=== PATIENT | male | born 1950 | race Caucasian/White ===

== ENCOUNTER 2019-05-22 17:04 | Emergency (ER) | payer OTHER, MEDICARE ==
--- OUTSIDE RECORDS SUMMARY | 2019-05-22 17:07 | XMS REPORT ---
:1950 Author Organization eClinicalWorks Care Team Providers Name Role Phone Tammie Malcolm Provider Role Unavailable Allergies No Known Allergies Problems Problem Type Condition Code Onset Dates Condition Status Problem Chronic kidney disease (CKD) stage N18.2 Active G2/A1, mildly decreased glomerular filtration rate (GFR) between 60-89 mL/min/1.73 square meter and albuminuria creatinine ratio less than 30 mg/g Problem Hypertriglyceridemia E78.1 Active Problem History of prostate cancer Z85.46 Active Problem Hyperglycemia R73.9 Active Problem Hypertension, unspecified type I10 Active Problem Chronic kidney disease (CKD) stage N18.3 Active G3a/A1, moderately decreased glomerular filtration rate (GFR) between 45-59 mL/min/1.73 square meter and albuminuria creatinine ratio less than 30 mg/g Problem Depression with anxiety F41.8 Active Problem Atrial fibrillation, unspecified I48.91 Active type Medications Medication Code System Code Instructions Start End Date Status Dosage Date Zoloft [facility] 28661388100 50 MG Orally Once Active TAKE 1 a day TABLET BY MOUTH ONCE A DAY Results No Known Results Summary Purpose eClinicalWorks Submission
--- OUTSIDE RECORDS SUMMARY | 2019-05-22 17:07 | XMS REPORT ---
:1950 Author Organization eClinicalWorks Care Team Providers Name Role Phone YoloAbdirahmana Provider Role Unavailable Allergies, Adverse Reactions, Alerts Substance Reaction Event Type N.K.D.A. Info Not Available Non Drug Allergy Problems Problem Type Condition Code Onset Dates Condition Status Assessment Dysuria R30.0 Active Problem Chronic kidney disease (CKD) stage N18.2 Active G2/A1, mildly decreased glomerular filtration rate (GFR) between 60-89 mL/min/1.73 square meter and albuminuria creatinine ratio less than 30 mg/g Assessment History of prostate cancer Z85.46 Active Assessment Depression with anxiety F41.8 Active Assessment Glucosuria R81 Active Problem Hypertriglyceridemia E78.1 Active Problem History of [...] unspecified I48.91 Active type Medications Medication Code Code Instructions Start End Status Dosage System Date Date Diltiazem HCl [facility] 22172392605 240 MG Orally Active 1 capsule ER Once a day on an empty stomach in the morning Icosapent [facility] [address]-20 1 GM Orally Active 2 capsules Ethyl Twice a day with meals Zoloft [facility] 22837345019 50 MG Active TAKE 1 TABLET BY MOUTH ONCE A DAY Results No Known Results Summary Purpose eClinicalWorks Submission
--- OUTSIDE RECORDS SUMMARY | 2019-05-22 17:07 | XMS REPORT ---
:1950 Author Organization eClinicalWorks Care Team Providers Name Role Phone Dung Gomez Provider Role Unavailable Allergies, Adverse Reactions, Alerts Substance Reaction Event Type N.K.D.A. Info Not Available Non Drug Allergy Problems Problem Type Condition Code Onset Dates Condition Status Assessment Hypertension, unspecified type I10 Active Problem Chronic kidney disease (CKD) stage N18.2 Active G2/A1, mildly decreased glomerular filtration rate (GFR) between 60-89 mL/min/1.73 square meter and albuminuria creatinine ratio less than 30 mg/g Assessment Hyperglycemia R73.9 Active Assessment Hypertriglyceridemia E78.1 Active Assessment Atrial fibrillation, unspecified I48.91 Active type Assessment Chronic kidney disease (CKD) stage N18.2 Active [...] Start End Status Dosage System Date Date Zoloft [facility] [id number] 50 MG Active TAKE 1 TABLET BY MOUTH ONCE A DAY Diltiazem HCl [facility] [id number] 240 MG Orally Active 1 capsule ER Once a day on an empty stomach in the morning Icosapent [facility] [address]-41 1 GM Orally Active 2 capsules Ethyl Twice a day with meals Results No Known Results Summary Purpose eClinicalWorks Submission
[2019-05-22] MEDS ORDERED: FENTANYL CITR 100 MCG/2 ML ONE ×2 (17:19→19:34)
[2019-05-22] MEDS ORDERED: NA CHLORIDE 0.9% 500 ML ONE (17:19)
[2019-05-22 17:37] LABS: Absolute Lymphocytes (CBC) 1.5 K/uL (0.7-4.9); Basophils % 0.5 % (0-1.3); Hematocrit 52.2 % (39.6-49.0); Lymphocytes % 10.5 % (15.3-44.8); MPV 9.5 fL (7.6-11.3); RBC Red Blood Cell Count 5.34 M/uL (4.33-5.43)
[2019-05-22 17:49] LABS: Potassium 4.3 mmol/L (3.5-5.1)
--- NOTE | 2019-05-22 17:51 | RAD REPORT ---
EXAM DESCRIPTION: CT - Head C Spine Cap Greg Nolasco - 05/22/2019 5:32 pm CLINICAL HISTORY: Trauma, head and neck injury. Chest, abdomen and pelvis pain. SMASH INJURY COMPARISON: No comparisons TECHNIQUE: CT head without contrast. CT cervical spine without contrast with coronal and sagittal reformatted images. CT chest, abdomen and pelvis with IV contrast (approximately 100 mL nonionic IV contrast) with velásquez l and sagittal reformatted images of the spine. All CT scans are performed using dose optimization technique as appropriate and may include automated exposure control or mA/KV adjustment according to patient size. FINDINGS: CT HEAD WITHOUT CONTRAST: No intracranial hemorrhage, hydrocephalus or extra-axial fluid collection. No areas of brain edema o r midline shift. The paranasal sinuses and mastoids are clear. The calvarium is intact. CT CERVICAL SPINE WITHOUT CONTRAST: No fracture or subluxation. Lower cervical degenerative changes present, most notable at C5-6. The pr evertebral soft tissues are normal in thickness. CT CHEST, ABDOMEN, PELVIS WITH CONTRAST: The lungs are clear.No pneumothorax or pericardial/pleural fluid. No evidence of intra-abdominal visceral injury, free fluid or free air. Punctate right renal calculu s is present. Left proximal femur hardware is present. A burst fracture is present involving the predominately inferior aspect of L3 vertebral body. Mild re tropulsion is seen in the canal with canal narrowing to 10 mm. There is no extension into the pedicle s or posterior elements although chronic bilateral pars defects are suspected as well at this level. IMPRESSION: Mild burst fracture involving inferior aspect of L3 with mild bony fragment retropulsion as detailed.
--- NOTE | 2019-05-22 18:28 | ER ---
Nurse's Notes [facility] Name: Abdi Whitney II Age: 69 yrs Sex: Male : 1950 Arrival Date: 05/22/2019 Time: 17:09 Bed 8 Private MD: Diagnosis: Fall on and from ladder;Burst fracture of L3 Presentation: 05/22 17:10 Presenting complaint: Patient states: he was on top of a 10 ft ladder and fell off of it and landed on both feet. Denies LOC, c/o pelvis pain. Care prior to arrival: None. Mechanism of Injury: Fall from ladder. 17:10 Acuity: CHIN 3 sv 17:10 Acuity: CHIN 2 sv 17:10 Method Of Arrival: Wheelchair sv 17:13 Trauma event details: Injury occurred in the [facility], Injury occurred: at home. Injury occurred: May 22, 2019 Injury occurred at: 16:00. 17:15 Transition of care: patient was not received from another setting of care. Onset of jl7 symptoms was May 22, 2019. Risk Assessment: Do you want to hurt yourself or someone else? Patient reports no desire to harm self or others. Initial Sepsis Screen: Does the patient meet any 2 criteria? No. Patient's initial sepsis screen is negative. Does the patient have a suspected source of infection? No. Patient's initial sepsis screen is negative. Triage Assessment: 17:15 General: Appears in no apparent distress. uncomfortable, Behavior is calm, cooperative, jl7 appropriate for age. Pain: Complains of pain in sacrum and low back area Pain currently is 8 out of 10 on a pain scale. Pain began 30 min ago. Is continuous. EENT: No signs and/or symptoms were reported regarding the EENT system. Neuro: Level of Consciousness is awake, alert, obeys commands, Oriented to person, place, time, situation, Moves all extremities. Full function Gait is steady. Cardiovascular: Patient's skin is warm and dry. Respiratory: Airway is patent Respiratory effort is even, unlabored, Respiratory pattern is regular, symmetrical. Derm: Skin is pink, warm \T\ dry. Trauma Activation: Alert Physician: ED Physician; Name: Rosy; Notified At: 17:06; Arrived At: 17:06 Physician: General Surgeon; Name: ; Notified At: 17:06; Arrived At: Physician: Radiology; Name: parul; Notified At: 17:06; Arrived At: 17:07 Physician: Respiratory; Name: ; Notified At: 17:06; Arrived At: Physician: Lab; Name: ; Notified At: 17:06; Arrived At: Historical: - Allergies: 17:13 No Known Allergies; sv - Home Meds: 17:13 Zoloft 50 mg Oral tab 1 tab once daily [Active]; diltiazem HCl 240 mg Oral cpER 1 cap sv once daily [Active]; Vascepa 1 gram oral cap 2 caps 2 times per day [Active]; - PMHx: 19:13 Hypertension; Depression; Anxiety; jl7 - PSHx: 17:13 left knee replacement; left hip; sv - Immunization history:: Adult Immunizations unknown. - Social history:: Smoking status: Patient denies any tobacco usage or history of. - Immunization history: Last tetanus immunization: < 5 years ago. - Ebola Screening: : No symptoms or risks identified at this time. Screenin:06 Abuse screen: Denies threats or abuse. Denies injuries from another. Tuberculosis jl7 screening: No symptoms or risk factors identified. 18:00 Nutritional screening: No deficits noted. Fall Risk IV access (20 points). Total Olmedo jl7 Fall Scale indicates No Risk (0-24 pts). Primary Survey: 17:06 NO uncontrolled hemorrhage observed. A: The patient is alert. Airway: patent. jl7 Breathing/Chest: Respiratory pattern: regular, Respiratory effort: spontaneous, unlabored, Breath sounds: clear, bilaterally. Chest inspection: symmetrical rise and fall of the chest. Circulation: Heart tones present. Skin color: pink, Skin temperature: warm. Disability Alert. Exposure/Environment: There is no evidence of uncontrolled external bleeding. A warming method has been applied: A warm blanket has been provided to the patient. 17:20 Reassessment Breathing/Chest Respiratory pattern Regular Respiratory effort Spontaneous jl7 Unlabored Breath sounds Clear Chest inspection Symmetrical Disability Alert. Assessment: 17:15 General: See triage assessment. jl7 18:15 Reassessment: Patient appears in no apparent distress at this time. Patient and/or jl7 family updated on plan of care and expected duration. Pain level reassessed. Patient is alert, oriented x 3, equal unlabored respirations, skin warm/dry/pink. Patient states symptoms have improved. 19:37 General: Appears uncomfortable, Behavior is calm, cooperative, appropriate for age. ea Pain: Complains of pain in sacrum and low back area and lumbar area. Neuro: Level of Consciousness is awake, alert, obeys commands, Oriented to person, place, time, situation. Cardiovascular: Patient's skin is warm and dry. Respiratory: Airway is patent Respiratory effort is even, unlabored, Respiratory pattern is regular, symmetrical. Derm: Skin is pink, warm \T\ dry. 19:56 Reassessment: Patient and/or family updated on plan of care and expected duration. Pain ea level reassessed. Patient is alert, oriented x 3, equal unlabored respirations, skin warm/dry/pink. LJ EMS at facility for transfer, pt left ED via stretcher per EMS, pt tolerating well. Vital Signs: 17:13 Temp 98; Weight 103.42 kg; Height 6 ft. 0 in. (182.88 cm); Pain 10/10; sv 18:00 BP 143 / 77; Pulse 66; Resp 16 S; Pulse Ox 99% on R/A; jl7 18:30 BP 149 / 88; Pulse 66; Resp 16 S; Pulse Ox 97% on R/A; jl7 19:45 BP 161 / 95; Pulse 77; Resp 18; Pulse Ox 94% ; ea 17:13 Body Mass Index 30.92 (103.42 kg, 182.88 cm) sv Dariel Coma Score: 17:06 Eye Response: spontaneous(4). Verbal Response: oriented(5). Motor Response: obeys jl7 commands(6). Total: 15. 18:00 Eye Response: spontaneous(4). Verbal Response: oriented(5). Motor Response: obeys jl7 commands(6). Total: 15. 19:45 Eye Response: spontaneous(4). Verbal Response: oriented(5). Motor Response: obeys ea commands(6). Total: 15. Trauma Score (Adult): 17:06 Eye Response: spontaneous(1); Verbal Response: oriented(1); Motor Response: obeys jl7 commands(2); Systolic BP: > 89 mm Hg(4); Respiratory Rate: 10 to 29 per min(4); Mobridge Score: 15; Trauma Score: 12 18:30 Eye Response: spontaneous(1); Verbal Response: oriented(1); Motor Response: obeys jl7 commands(2); Systolic BP: > 89 mm Hg(4); Respiratory Rate: 10 to 29 per min(4); Dariel Score: 15; Trauma Score: 12 ED Course: 17:06 Patient maintains SpO2 saturation greater than 95% on room air. Thermoregulation: warm jl7 blanket given to patient. 17:06 Patient has correct armband on for positive identification. Placed in gown. Bed in low jl7 position. Call light in reach. Side rails up X2. 17:09 Patient arrived in ED. mr 17:11 Teodora Bose, DAVID is PHCP. snw 17:11 Vipul Gallegos MD is Attending Physician. snw 17:12 Triage completed. sv 17:15 eRno Porter, OTONIEL is Primary Nurse. jl7 17:15 Arm band placed on right wrist. jl7 17:26 Inserted saline lock: 18 gauge in left antecubital area, using aseptic technique. em1 17:27 Initial lab(s) drawn, by me, sent to lab. em1 17:33 CT Traumagram (Head C Spine CAP W Con) In Process Unspecified. EDMS 18:00 No provider procedures requiring assistance completed. jl7 18:00 Inserted saline lock: 18 gauge in right antecubital area, using aseptic technique. jl7 Blood collected. 18:23 Foot Left 2 View XRAY In Process Unspecified. EDMS 18:24 Foot Right 2 View XRAY In Process Unspecified. EDMS 19:13 Patient transferred, IV remains in place. intact, No redness/swelling at site. jl7 Administered Medications: 17:20 Drug: fentaNYL (PF) 50 mcg Route: IVP; Site: right antecubital; jl7 17:30 Follow up: Response: No adverse reaction; Pain is decreased jl7 18:00 Drug: NS 0.9% 500 ml Route: IV; Rate: bolus; Site: left antecubital; jl7 18:30 Follow up: Response: No adverse reaction; IV Status: Completed infusion; IV Intake: jl7 500ml 19:37 Drug: fentaNYL (PF) 25 mcg Route: IVP; Site: right antecubital; ea 19:57 Follow up: Response: No adverse reaction; RASS: Alert and Calm (0) ea 19:37 Drug: Valium 5 mg Route: IVP; Site: right antecubital; ea 19:58 Follow up: Response: No adverse reaction; Pain is decreased ea Intake: 18:30 IV: 500ml; Total: 500ml. jl7 19:57 PO: 0ml; IV: 500ml (IV Fluid); Total: 1000ml. ea Outcome: 18:28 ER care complete, transfer ordered by . snw 19:56 Transferred by ground EMS to other acute care facility: [facility]. Transfer form ea completed. X-rays sent w/ patient. 19:56 Condition: stable 19:56 Instructed on the need for transfer. 19:57 Patient's length of stay was not longer than 2 hours. ea 20:03 Patient left the ED. ea Signatures: Dispatcher [employer] EDMS Heike Gomes, RN RN Teodora Barr, LABORER HIDE [employer]SE-C [employer]ER [employer]-Csnw Deyanira Baez, Sameer em1 Reno Porter RN RN jl7 Oliva Carlton RN OTONIEL rosas
--- NOTE | 2019-05-22 18:28 | EDPHYS ---
Physician Documentation [facility] Name: Abdi Whitney II Age: 69 yrs Sex: Male : 1950 Arrival Date: 05/22/2019 Time: 17:09 Bed 8 Private MD: ED Physician Vipul Gallegos HPI: 05/22 18:17 This 69 yrs old Male presents to ER via Wheelchair with complaints of Fall snw Injury. 18:17 Details of fall: The patient fell from a height, from a ladder, approximately 10 feet. snw Onset: The symptoms/episode began/occurred suddenly, just prior to arrival. Associated injuries: The patient sustained injury to the low back, pain. Severity of symptoms: At their worst the symptoms were moderate. The patient has not experienced similar symptoms in the past. It is unknown whether or not the patient has recently seen a physician. Able to ambulate to car and came to ED in stable condition. Historical: - Allergies: 17:13 No Known Allergies; sv - Home Meds: 17:13 Zoloft 50 mg Oral tab 1 tab once daily [Active]; diltiazem HCl 240 mg Oral cpER 1 cap sv once daily [Active]; Vascepa 1 gram oral cap 2 caps 2 times per day [Active]; - PMHx: 19:13 Hypertension; Depression; Anxiety; jl7 - PSHx: 17:13 left knee replacement; left hip; sv - Immunization history:: Adult Immunizations unknown. - Social history:: Smoking status: Patient denies any tobacco usage or history of. - Immunization history: Last tetanus immunization: < 5 years ago. - Ebola Screening: : No symptoms or risks identified at this time. ROS: 17:36 Constitutional: Negative for fever, chills, and weight loss, Eyes: Negative for injury, snw pain, redness, and discharge, ENT: Negative for injury, pain, and discharge, Neck: Negative for injury, pain, and swelling, Cardiovascular: Negative for chest pain, palpitations, and edema, Respiratory: Negative for shortness of breath, cough, wheezing, and pleuritic chest pain, Abdomen/GI: Negative for abdominal pain, nausea, vomiting, diarrhea, and constipation, : Negative for injury, bleeding, discharge, and swelling, MS/Extremity: Negative for injury and deformity, Skin: Negative for injury, rash, and discoloration, Neuro: Negative for headache, weakness, numbness, tingling, and seizure. 17:36 Back: Positive for injury or acute deformity, decreased range of motion, pain at rest, pain with movement, of the lumbar area, low back area and sacrum. Exam: 17:35 Head/Face: Normocephalic, atraumatic. Eyes: Pupils equal round and reactive to light, snw extra-ocular motions intact. Lids and lashes normal. Conjunctiva and sclera are non-icteric and not injected. Cornea within normal limits. Periorbital areas with no swelling, redness, or edema. ENT: Nares patent. No nasal discharge, no septal abnormalities noted. Tympanic membranes are normal and external auditory canals are clear. Oropharynx with no redness, swelling, or masses, exudates, or evidence of obstruction, uvula midline. Mucous membranes moist. Neck: Trachea midline, no thyromegaly or masses palpated, and no cervical lymphadenopathy. Supple, full range of motion without nuchal rigidity, or vertebral point tenderness. No Meningismus. Chest/axilla: Normal chest wall appearance and motion. Nontender with no deformity. No lesions are appreciated. Cardiovascular: Regular rate and rhythm with a normal S1 and S2. No gallops, murmurs, or rubs. Normal PMI, no JVD. No pulse deficits. Respiratory: Lungs have equal breath sounds bilaterally, clear to auscultation and percussion. No rales, rhonchi or wheezes noted. No increased work of breathing, no retractions or nasal flaring. Abdomen/GI: Soft, non-tender, with normal bowel sounds. No distension or tympany. No guarding or rebound. No evidence of tenderness throughout. Skin: Warm, dry with normal turgor. Normal color with no rashes, no lesions, and no evidence of cellulitis. MS/ Extremity: Pulses equal, no cyanosis. Neurovascular intact. Full, normal range of motion. Neuro: Awake and alert, GCS 15, oriented to person, place, time, and situation. Cranial nerves II-XII grossly intact. Motor strength 5/5 in all extremities. Sensory grossly intact. Cerebellar exam normal. Normal gait. 17:35 Constitutional: The patient appears alert, awake, uncomfortable. 17:35 Back: pain, that is moderate, of the lumbar area, low back area and sacrum, ROM is painful, normal spinal alignment noted, CVA tenderness, is absent, vertebral tenderness, posterior hip tenderness, muscle spasm, is not present. Vital Signs: 17:13 Temp 98; Weight 103.42 kg; Height 6 ft. 0 in. (182.88 cm); Pain 10/10; sv 18:00 BP 143 / 77; Pulse 66; Resp 16 S; Pulse Ox 99% on R/A; jl7 18:30 BP 149 / 88; Pulse 66; Resp 16 S; Pulse Ox 97% on R/A; jl7 19:45 BP 161 / 95; Pulse 77; Resp 18; Pulse Ox 94% ; ea 17:13 Body Mass Index 30.92 (103.42 kg, 182.88 cm) sv Doon Coma Score: 17:06 Eye Response: spontaneous(4). Verbal Response: oriented(5). Motor Response: obeys jl7 commands(6). Total: 15. 18:00 Eye Response: spontaneous(4). Verbal Response: oriented(5). Motor Response: obeys jl7 commands(6). Total: 15. 19:45 Eye Response: spontaneous(4). Verbal Response: oriented(5). Motor Response: obeys ea commands(6). Total: 15. Trauma Score (Adult): 17:06 Eye Response: spontaneous(1); Verbal Response: oriented(1); Motor Response: obeys jl7 commands(2); Systolic BP: > 89 mm Hg(4); Respiratory Rate: 10 to 29 per min(4); Dariel Score: 15; Trauma Score: 12 18:30 Eye Response: spontaneous(1); Verbal Response: oriented(1); Motor Response: obeys jl7 commands(2); Systolic BP: > 89 mm Hg(4); Respiratory Rate: 10 to 29 per min(4); Doon Score: 15; Trauma Score: 12 MDM: 17:14 Patient medically screened. snw 18:18 Data reviewed: vital signs, nurses notes. Data interpreted: Pulse oximetry: on room air snw is 97 %. Interpretation: normal. Counseling: I had a detailed discussion with the patient and/or guardian regarding: the historical points, exam findings, and any diagnostic results supporting the discharge/admit diagnosis, the presence of at least one elevated blood pressure reading (>120/80) during this emergency department visit, lab results, radiology results, the need to transfer to another facility, [facility] does not immediately have the required specialist. Physician consultation: Dr. Jaron Francisco was called at 18:19, was contacted at 18:19, regarding regarding transfer, to [facility]. accepted kindly to [facility]. 05/22 17:13 Order name: Basic Metabolic Panel; Complete Time: 17:49 snw 05/22 17:13 Order name: CBC with Diff; Complete Time: 17:41 snw 05/22 17:13 Order name: CT Traumagram (Head C Spine CAP W Con); Complete Time: 17:55 snw 05/22 17:13 Order name: Creatinine for Radiology; Complete Time: 17:49 snw 05/22 17:13 Order name: Type And Screen; Complete Time: 18:26 snw 05/22 18:00 Order name: Foot Left 2 View XRAY; Complete Time: 18:44 snw 05/22 17:13 Order name: Labs collected and sent; Complete Time: 17:26 snw 05/22 18:00 Order name: Foot Right 2 View XRAY; Complete Time: 18:44 snw Administered Medications: 17:20 Drug: fentaNYL (PF) 50 mcg Route: IVP; Site: right antecubital; jl7 17:30 Follow up: Response: No adverse reaction; Pain is decreased jl7 18:00 Drug: NS 0.9% 500 ml Route: IV; Rate: bolus; Site: left antecubital; jl7 18:30 Follow up: Response: No adverse reaction; IV Status: Completed infusion; IV Intake: jl7 500ml 19:37 Drug: fentaNYL (PF) 25 mcg Route: IVP; Site: right antecubital; ea 19:57 Follow up: Response: No adverse reaction; RASS: Alert and Calm (0) ea 19:37 Drug: Valium 5 mg Route: IVP; Site: right antecubital; ea 19:58 Follow up: Response: No adverse reaction; Pain is decreased ea Disposition: 05/23 16:42 Co-signature as Attending Physician, Vipul Gallegos MD. rn Disposition: 05/22/19 18:28 Transfer ordered to Other Acute Care Facility. Diagnosis are Fall on and from ladder, Burst fracture of L3. - Reason for transfer: Higher level of care. - Accepting physician is Dr. Rothman. - Condition is Stable. - Problem is new. - Symptoms have improved. Signatures: Dispatcher [employer] Heike Ornelas, RN RN Teodora Barr, BUSINESS CONTROL SPECIALIST-C BUSINESS CONTROL SPECIALIST-Csnw Vipul Gallegos MD MD rn Leal, Jahala, RN RN jl7 Oliva Carlton RN OTONIEL ea Corrections: (The following items were deleted from the chart) 05/22 18:48 18:28 05/22/2019 18:28 Transfer ordered to Other Acute Care Facility. Diagnosis is Fall snw on and from ladder; Burst fracture of L3. Reason for transfer: Higher level of care. Accepting physician is Dr. Rothman. Condition is Stable. Problem is new. Symptoms have improved. snw 20:03 18:48 05/22/2019 18:28 Transfer ordered to Other Acute Care Facility. Diagnosis is Fall ea on and from ladder; Burst fracture of L3. Reason for transfer: Higher level of care. Accepting physician is Dr. Rothman. Condition is Stable. Problem is new. Symptoms have improved. snw
--- NOTE | 2019-05-22 18:38 | RAD REPORT ---
EXAM DESCRIPTION: RAD - Foot Right 2 View - 05/22/2019 6:23 pm CLINICAL HISTORY: PAIN COMPARISON: No comparisons FINDINGS: No fracture or dislocation seen.
--- NOTE | 2019-05-22 18:40 | RAD REPORT ---
EXAM DESCRIPTION: RAD - Foot Left 2 View - 05/22/2019 6:23 pm CLINICAL HISTORY: SMASH INJURY Trauma, foot pain COMPARISON: No comparisons FINDINGS: No fracture or dislocation evident.
[2019-05-22] MEDS ORDERED: DIAZEPAM 10 MG/2 ML INJ SYRINGE ONE (19:35)
[2019-05-23 09:56] VITALS: TEMP 98
== END 2019-05-22 20:03 ==
LOC: ER 17:04
DX: S32.031A Stable burst fracture of third lumbar vertebra, initial encounter for closed fracture (principal); W11.XXXA Fall on and from ladder, initial encounter; Y93.9 Activity, unspecified; Y92.9 Unspecified place or not applicable; I10 Essential (primary) hypertension; F34.1 Dysthymic disorder; Z96.642 Presence of left artificial hip joint; Z96.652 Presence of left artificial knee joint
CPT/HCPCS: 85025; 80048; 36415; 86900; 86850; 86901; 70450; 72125; 71260; 74177; 73620 ×2; 96375; 96374; 99285; Q9967; J3360; J3010 ×2; J7040

== ENCOUNTER 2021-07-28 11:13 | Emergency (ER) | payer OTHER, MEDICARE ==
--- OUTSIDE RECORDS SUMMARY | 2021-07-28 11:16 | XMS REPORT | Continuity of Care Document ---
:1950 Author Organization [facility] t Address [address] [place] [address] Care Team Providers Name Role Phone [place] Attending Clinician Unavailable ROD PEREZ Attending Clinician Unavailable ELISSA Attending Clinician Unavailable Rod Perez MD Attending Clinician Kenya DUNN Attending Clinician Jann ALARCON Attending Clinician Only, Test Attending Clinician Unavailable Doctor Unassigned, Name Attending Clinician Unavailable Pob, Lab Main Attending Clinician Unavailable ROD PEREZ Admitting Clinician Unavailable Rod Perez MD Admitting Clinician Payers Payer Name Policy Type Policy Number Effective Date Expiration Date S asa AETNA MEDICARE ADV [id number] 2019 00:00:00 [employer]ET[employer] MEDICARE PPO [id number] 00:00:00 Problems This patient has no known problems. Allergies, Adverse Reactions, Alerts Allergy Allergy Status Severity Reaction(s) Onset Inactive Treating Comm ents Source Name Type Date Date Clinician NO KNOWN Drug Active Univers ALLERGIE Victor M [facility] Social History Social Habit Start Date Stop Date Quantity Comments Source History [facility] Alcohol Std Drinks History [facility] Alcohol Binge Exposure to Not sure [place] [facility] SARS-CoV-2 (event) History [facility] 2020-12-16 2020-12-16 1 [place] [facility] Alcohol Frequency 00:00:00 00:00:00 Tobacco use and 2020-12-16 2020-12-16 Never used [place] [facility] exposure 00:00:00 00:00:00 Alcohol intake 2020-12-16 2020-12-16 Lifetime [place] [facility] 00:00:00 00:00:00 non-drinker (finding) Sex Ass[birth year] At [birth year] [facility] 00:00:00 00:00:00 Smoking Status Start Date Stop Date Source Unknown if ever smoked [facility] [place] Never smoker [facility] Medications Ordered Filled Start Stop Current Ordering Indication Dosage Frequency Signature Comments Components Source Medication Medication Date Date Medication? Clinician (SIG) Name Name Icosapent Yes Vascepa 1 [place] Ethyl 17 gram Health (Vascepa) 1 18:01: capsule g capsule 57 TAKE 2 CAPSULES BY MOUTH TWICE A DAY WITH FOOD (SWALLOW WHOLE. DO NOT CRUSH, OPEN, OR CRUSH) sertraline Yes sertraline U T (Zoloft) 817 100 mg Health 100 MG 18:01: tablet tablet 57 TAKE 1 TABLET BY MOUTH EVERY DAY diflupredna Yes Durezol [place] te 8-17 0.05 % eye Health (Durezol) 18:01: drops 0.05 % 56 PLEASE SEE ophthalmic ATTACHED solution FOR DETAILED DIRECTIONS dilTIAZem Yes [place] CD 8-16 Health (Cardizem 00:00: CD) 240 MG 00 24 hr capsule SERTraline 2019-05 Yes 100mg Take 100 Un juan jose 100 mg 1-19 mg by ity of tablet 17:13: mouth [place] 01 daily. Medical Branch diltiazem 2019-05 Yes 240mg Take 240 Uni vers 240 mg 24 1-19 mg by ity of hr capsule 17:13: mouth [place] 01 daily. Medical Branch SERTraline 2019-05 Yes 100mg Take 100 Un juan jose 100 mg 1-19 mg by ity of tablet 16:24: mouth [place] 41 daily. Medical Branch diltiazem 2019-05 Yes 240mg Take 240 Uni vers 240 mg 24 1-19 mg by ity of hr capsule 16:24: mouth [place] 41 daily. Medical Branch SERTraline 2019-05 Yes 100mg Take 100 Un juan jose 100 mg 1-19 mg by ity of tablet 16:24: mouth [place] 41 daily. Medical Branch diltiazem 2019-05 Yes 240mg Take 240 Uni vers 240 mg 24 05-20 mg by ity of hr capsule 16:24: mouth [place] 41 daily. Medical Branch remifentani 2019-05 2020- No ONCE INTRA Univers L (ULTIVA) 05-20 PROCEDURE, it y of injection 15:58: 16:39 Starting Ananth as 00 :19 [facility] 03/20/20 Branch at 0958, Until [facility] 03/20/20 at 1039, Routine, Intra-op propofoL IV 2019-05- No Slow IV Un juan jose infusion 05-20 Push, ONCE ity of 15:58: 16:39 INTRA [place] 00 :14 PROCEDURE, Medical Starting Branch [facility] 03/20/20 at 0958, Until [facility] 03/20/20 at 1039, Routine, Intra-op lidocaine 2019-05 2020- No ONCE INTRA U nivers 2% 05-20 PROCEDURE, ity of (XYLOCAINE) 15:58: 16:39 Starting [place] 20 mg/mL (2 00 :08 [facility] %) 03/20/20 Branch injection at 0958, Until [facility] 03/20/20 at 1039, Routine, Intra-op remifentani 2019-05 2020- No ONCE INTRA Univers L (ULTIVA) 05-20 PROCEDURE, it y of injection 15:58: 16:39 Starting Ananth as 00 :19 [facility] 03/20/20 Branch at 0958, Until [facility] 03/20/20 at 1039, Routine, Intra-op propofoL IV 2019-05 2020- No Slow IV Un juan jose infusion 05-20 Push, ONCE ity of 15:58: 16:39 INTRA [place] 00 :14 PROCEDURE, Medical Starting Branch [facility] 03/20/20 at 0958, Until [facility]ff 03/20/20 at 1039, Routine, Intra-op lidocaine 2019-05 2020- No ONCE INTRA U nivers 2% 05-20 PROCEDURE, ity of (XYLOCAINE) 15:58: 16:39 Starting [place] 20 mg/mL (2 00 :08 [facility] %) 03/20/20 Branch injection at 0958, Until [facility] 03/20/20 at 1039, Routine, Intra-op tetracaine 2019-05 Yes PRN, Univers (PONTOCAINE 05-20 Starting ity of ) 0.5 % 15:49: [facility] [place] ophthalmic 03/20/20 Medic al drops at 0949, Branch Until Discontinu ed, Routine, Intra-op water for 2019-05 Yes PRN, Univers irrigation 05-20 Starting ity o f irrigation 15:49: [facility] [place] solution 03/20/20 Medical at 0949, Branch Until Discontinu ed, Routine, Intra-op NaCl 0.9% 2019-05 Yes PRN, Univers (NS) 05-20 Starting ity of injection 15:49: [facility] [place] 03/20/20 Medical at 0949, Branch Until Discontinu ed, Routine, Intra-op neomycin-po 2019-05 Yes PRN, Univer s lymyxin-dex 05-20 Starting ity of amethasone 15:49: [facility] [place] (MAXITROL) 03/20/20 Medic al 3.5 at 0949, [place] mg/g-10,000 Until unit/g-0.1 Discontinu % ed, ophthalmic Routine, ointment Intra-op gentamicin 2019-05 Yes PRN, Univers injection 05-20 Starting ity of 15:49: [facility] [place] 03/20/20 Medical at 0949, Branch Until Discontinu ed, HEIDI, Intra-op eye block 2019-05 Yes PRN, Univers syringe 11 05-20 Starting ity o f mL 15:49: [facility] [place] 03/20/20 Medical at 0949, Branch Until Discontinu ed, Intra-op EPINEPHrine 2019-05 Yes PRN, Univer s (PF) 05-20 Starting ity of 1:1,000 (1 15:48: [facility] [place] mg/mL) 03/20/20 Medical (ADRENALIN at 0948, [facility] h (PF)) Until injection Discontinu ed, Routine, Intra-op DUOVISC 2019-05 Yes PRN, Univers (DUOVISC 05-20 Starting ity of VISCO 15:48: [facility] [place] ELASTIC) 3 03/20/20 Medic al %-4 %(0.5 at 0948, Branch mL) 1 % Until (0.55 mL) Discontinu intraocular ed, injection Routine, Intra-op dexamethaso 2019-05 Yes PRN, Univer s ne 05-20 Starting ity of (DECADRON 15:48: [facility] [place] PHOSPHATE) 03/20/20 Medic al injection at 0948, Branch Until Discontinu ed, Routine, Intra-op ceFAZolin 2019-05 Yes PRN, [facility] (ANCEF) 05-20 Starting ity of injection 15:48: [facility] [place] 03/20/20 Medical at 0948, Branch Until Discontinu ed, HEIDI, Intra-op balanced 2019-05 Yes PRN, Univers salt soln 05-20 Starting ity of no.2 irrig. 15:48: [facility] [place] (BSS) 03/20/20 Medical ophthalmic at 0948, Branc h solution Until Discontinu ed, Routine, Intra-op lactated 2019-05 2020- No Intravenou Un juan jose ringers IV 05-20 s, ity of infusion 14:51: 16:24 CONTINUOUS [place] 00 :22 PRN, Medical Starting Branch [facility] 03/20/20 at 0851, Until [facility] 03/20/20 at 1024, Routine, Intra-op lactated 2019-05 2020- No Intravenou Un juan jose ringers IV 05-20 s, ity of infusion 14:51: 16:24 [place]UOUS [place] 00 :22 PRN, Medical Starting Branch [facility] 03/20/20 at 0851, Until [facility] 03/20/20 at 1024, Routine, Intra-op mydriatic 2019-05 2020- No .5mL 0.5 mL, Univ ers #5 05-20 Left Eye, ity of ophthalmic 14:45: 14:45 ONCE, 1 Ananth as solution 00 :00 dose, [facility] Medica l 0.5 mL 03/20/20 Branch syringe at 0845, Routine lactated 2019-05 2020- No 1000mL at 42 Unive rs ringers IV 05-20 mL/hr, ity of infusion 14:45: 14:52 1,000 mL, Ananth as 1,000 mL 00 :00 IV Medical Infusion, Branch ONCE, 1 dose, [facility] 03/20/20 at 0845, Routine, DSU Pre-op SERTraline 2019-05 Yes 100mg Take 100 Un juan jose 100 mg 0-29 mg by ity of tablet 16:04: mouth [place] 32 daily. Medical Branch diltiazem 2019-05 Yes 240mg Take 240 Uni vers 240 mg 24 0-29 mg by ity of hr capsule 16:04: mouth [place] 32 daily. Medical Branch SERTraline 2019-05 Yes 100mg Take 100 Un juan jose 100 mg 0-29 mg by ity of tablet 16:04: mouth [place] 32 daily. Medical Branch diltiazem 2019-05 Yes 240mg Take 240 Uni vers 240 mg 24 0-29 mg by ity of hr capsule 16:04: mouth [place] 32 daily. Medical Branch SERTraline 2019-05 Yes 100mg Take 100 Un juan jose 100 mg 0-29 mg by ity of tablet 16:04: mouth [place] 32 daily. Medical Branch diltiazem 2019-05 Yes 240mg Take 240 Uni vers 240 mg 24 0-29 mg by ity of hr capsule 16:04: mouth [place] 32 daily. Medical Branch NaCl 0.9% 2019-05 Yes PRN, Univers (NS) 0-29 Starting ity of injection 15:33: [facility] [place] 00 02/28/20 Medical at 1033, Branch Until Discontinu ed, Routine, Intra-op neomycin-po 2019-05 Yes PRN, Univer s lymyxin-dex 0- Starting ity of amethasone 15:33: [facility] [place] (MAXITROL) 00 02/28/20 Medic al 3.5 at 1033, Branch mg/g-10,000 Until unit/g-0.1 Discontinu % ed, ophthalmic Routine, ointment Intra-op gentamicin 2019-05 Yes PRN, Univers injection 0- Starting ity of 15:33: [facility] [place] 00 02/28/20 Medical at 1033, Branch Until Discontinu ed, HEIDI, Intra-op dexamethaso 2019-05 Yes PRN, Univer s ne 0-29 Starting ity of (DECADRON 15:33: [facility] [place] PHOSPHATE) 00 02/28/20 Medic al injection at 1033, Branch Until Discontinu ed, Routine, Intra-op ceFAZolin 2019-05 Yes PRN, Univers (ANCEF) 0-29 Starting ity of injection 15:33: [facility] [place] 00 02/28/20 Medical at 1033, Branch Until Discontinu ed, HEIDI, Intra-op DUOVISC 2019-05 Yes PRN, Univers (DUOVISC 0- Starting ity of VISCO 15:30: [facility] [place] ELASTIC) 3 00 02/28/20 Medic al %-4 %(0.5 at 1030, Branch mL) 1 % Until (0.55 mL) Discontinu intraocular ed, injection Routine, Intra-op EPINEPHrine 2019-05 Yes PRN, Univer s (PF) 0- Starting ity of 1:1,000 (1 15:22: [facility] [place] mg/mL) 00 02/28/20 Medical (ADRENALIN at 1022, Branc h (PF)) Until injection Discontinu ed, Routine, Intra-op balanced 2019-05 Yes PRN, Univers salt soln 0 Starting ity of no.2 irrig. 15:22: [facility] [place] (BSS) 02/28/20 Medical ophthalmic at 1022, Branc h solution Until Discontinu ed, Routine, Intra-op water for 2019-05 Yes PRN, Univers irrigation 0 Starting ity o f irrigation 15:20: [facility] [place] solution 02/28/20 Medical at 1020, Branch Until Discontinu ed, Routine, Intra-op tetracaine 2019-05 Yes PRN, Univers (PONTOCAINE 0 Starting ity of ) 0.5 % 15:19: [facility] [place] ophthalmic 02/28/20 Medic al drops at 1019, Branch Until Discontinu ed, Routine, Intra-op eye block 2019-05 Yes PRN, Univers syringe 11 Starting ity o f mL 15:18: [facility] [place] 00 02/28/20 Medical at 1018, Branch Until Discontinu ed, Intra-op mydriatic 2019-05 2020- No .5mL 0.5 mL, Univ ers #5 02-27 Right Eye, ity of ophthalmic 13:45: 13:44 ONCE, 1 Ananth as solution 00 :00 dose, [facility] Medica l 0.5 mL 02/28/20 Branch syringe at 0845, Routine acyclovir Yes acyclovir [place] (Zovirax) 5 10-08 5 % Health % ointment 00:00: topical 00 ointment Acyclovir Acyclovir 2019-0 Yes Tammie [address] [facility] [address] 10-08 [place] applicatio [facility] - 00:[facility]: n every 3 [facility] 00 hours l Outpati ent Clinics Valacyclovi Valacyclovi 0 2020- No Tammie [address] [facility] [facility] HCl r HCl 10-08 [place] [facility] 00[facility]: [facility]:00 [facility] 00 [facility] Diltiazem Diltiazem Yes Tammie [address] [facility] HCl ER HCl ER [place] on an [facility] - empty [facility] stomach in l the [facility] Clinics Zoloft Zoloft Yes Tammie [address] [facility] [facility] [place] [facility] Vascepa Vascepa Yes Tammie [address] [place] with meals [facility] Immunizations Ordered Filled Immunization Date Status Comments Sour e Immunization Name Name FLUZONE HIGH DOSE FLUZONE HIGH DOSE 2018-02-[address] [facility] - OVER 65 OVER 65 00:00:00 [facility] Vital Signs Vital Name Observation Time Observation Value Comments Source Body height 2020-12-16 18:00:00 182.9 cm [facility] Body weight 2020-12-16 18:00:00 101.152 kg [facility] BMI 2020-12-16 18:00:00 30.24 kg/m2 [facility] Heart rate 2020-03-20 16:45:00 46 /min [facility] Respiratory rate 2020-03-20 16:45:00 13 /min [facility] Oxygen saturation in 2020-03-20 16:45:00 94 /min [facility] Arterial blood by [facility] Pulse oximetry Branch Systolic blood 2020-03-20 16:45:00 134 mm[Hg] Univer sity of pressure [facility] Diastolic blood 2020-03-20 16:45:00 76 mm[Hg] Unive rsity of pressure [facility] Body temperature 2020-03-20 16:40:00 36.44 [facility] [place] Body height 2020-03-18 20:00:00 182.9 cm [facility] Body weight 2020-03-18 20:00:00 99.791 kg [facility] BMI 2020-03-18 20:00:00 29.84 kg/m2 [facility] Heart rate 2020-03-20 16:45:00 46 /min [facility] Respiratory rate 2020-03-20 16:45:00 13 /min [facility] [place] [facility] Oxygen saturation in 2020-03-20 16:45:00 94 /min University of Arterial blood by [facility] Pulse oximetry Branch Systolic blood 2020-03-20 16:45:00 134 mm[Hg] Univer sity of pressure [place] [facility] Diastolic blood 2020-03-20 16:45:00 76 mm[Hg] Unive rsity of pressure [place] [facility] Body temperature 2020-03-20 16:40:00 36.44 Vaishali Univ [facility] [place] [facility] Body height 2020-03-18 20:00:00 182.9 cm [facility] [place] [facility] Body weight 2020-03-18 20:00:00 99.791 kg [facility] [place] [facility] BMI 2020-03-18 20:00:00 29.84 kg/m2 [facility] [place] [facility] Respiratory rate 2020-03-20 16:21:00 14 /min Univ [facility] [place] [facility] Respiratory rate 2020-03-20 16:21:00 14 /min Univ [facility] [place] [facility] Systolic blood 2020-02-28 15:53:00 150 mm[Hg] Univer sity of pressure [place] [facility] Diastolic blood 2020-02-28 15:53:00 80 mm[Hg] Unive rsity of pressure [place] [facility] Respiratory rate 2020-02-28 15:53:00 16 /min Univ [facility] [place] [facility] Oxygen saturation in 2020-02-28 15:53:00 95 /min University of Arterial blood by [facility] Pulse oximetry Branch Heart rate 2020-02-28 15:42:00 53 /min [facility] [place] [facility] Body temperature 2020-02-28 15:42:00 37.06 Vaishali Univ [facility] [place] [facility] Body height 2020-02-27 16:00:00 182.9 cm [facility] [place] [facility] Body weight 2020-02-27 16:00:00 101.152 kg [facility] [place] [facility] BMI 2020-02-27 16:00:00 30.24 kg/m2 [facility] [place] [facility] Procedures Procedure Date / Time Performing Clinician Source Performed CONSENT/REFUSAL FOR 2020-03-19 16:47:00 [facility] [place] [facility] ASSIGNMENT OF BENEFITS 2020-03-19 16:46:44 Doctor Unassigned, [facility] COVID-19 (ID NOW RAPID 2020-02-27 14:39:00 [facility] TEST[facility]) [facility] [place] NOTICE OF BILLING 2020-02-21 20:29:49 Doctor Unajoanneigned, [facility] PRACTICES FOR MEDICARE [place] [facility] PATIENTS [facility] PATIENT FINANCIAL 2020-02-21 20:29:23 Doctor Unassigned, Hany [facility] POLICY [facility] NO SHOW OR MISSED 2020-02-21 20:29:03 Doctor Akilahssigned, [facility] APPOINTMENT POLICY [place] [facility] ACKNOWLEDGEMENT CONSENT/REFUSAL FOR 2020-02-21 20:28:40 Doctor Eunice [facility] DIAGNOSIS AND TREATMENT [facility] ASSIGNMENT OF BENEFITS 2020-02-21 20:28:20 Doctor Hany Dawson [facility] NOTICE OF PRIVACY 2020-02-21 20:28:01 Doctor Eunice, [facility] PRACTICES [facility] CONSENT/REFUSAL FOR 2020-02-21 20:27:45 Doctor [facility] DIAGNOSIS AND TREATMENT [facility] ASSIGNMENT OF BENEFITS 2020-02-21 20:27:26 Doctor Eunice, [facility] Encounters Start End Encounter Admission Attending Care Care Encounter Source Date/Time Date/Time Type Type Clinicians Facility Department ID 2021-05-27 Outpatient Yun [facility] 13:46[facility]36 Tammie [id number] [facility] 2021-[facility]-[address] [facility] [id number] 13:12:11 Tammie [id number] [facility] 2021-05-[address] [facility] [id number] 11:06:05 Tammie [id number] [facility] 2021-02-28 Outpatient Susie PEREZ [facility] JOSE MIGUEL [id number] Univers 04:51:39 ANDREW wray [facility] 2021-02-28 Outpatient R LINDA [facility] JOSE MIGUEL [id number] Univers 00:34:26 ANDREW wray [facility] 2020-12-16 Outpatient PINKY REYES [facility] [id number] [place] 13:25:30 Health 2020-12-05 Outpatient PINKY REYES [facility] [id number] [place] 10:35:55 Health 2019-05-22 Inpatient [facility] [id number] [facility] 21:12:00 2021-04-22 2021-04-22 ambulatory [facility] [id number] [facility] 2021-02-10 2021-02-10 Outpatient [facility] [id number] [facility] 2020-12-16 2020-12-16 Office Pinky Reyes RUST 6400 [id number] [place] 12:57:31 13:25:51 Visit IRA ARGUELLO [id number] [facility] [id number] 2020-11-20 2020-11-20 Outpatient [facility]MLC [facility] [id number] [facility] 2020-03-20 2020-03-20 [facility] [id number] [facility] 08:35:00 10:54:00 Encounter Andrew Valero [id number] ity Ana Brasher [id number] [facility] [id number] Med [address] 2020-03-20 2020-03-20 [facility] [id number] 08:35:00 10:54:00 Encounter Andrew Valero [id number] Rod Brasher [id number] Surgical [id number] [place] [address] 2020-03-20 2020-03-20 Anesthesia Sameer Zambrano [facility] [id number] [facility] 09:56:00 10:24:00 Neil Forte [id number] ity fouzia [place] [id number] [place] [id number] [facility] 020 Branch 2020-03-20 2020-03-20 Anesthesia Sameer Zambrano [facility] [id number] 09:56:00 10:24:00 Neil Forte [id number] Sameera [id number] Surgical [id number] [place] 020 2020-03-19 2020-03-19 Laboratory Only, Adc Test [facility] 1.2.840. [id number] Univers 10:48:21 11:03:21 Only Andrew Perez 350.1.1 3.10 ity of [place] [id number] [place] [id number] [facility] 353 Branch 2020-03-19 2020-03-19 Outpatient R [facility] [id number] Univers 11:00:00 11:00:00 [id number] ity of [facility] 2020-03-19 2020-03-19 [facility] [id number] Univers 11:00:00 11:00:00 ANDREW ity [facility] 2020-03-19 2020-03-19 Orders Doctor LISY [id number] Univers 00:00:00 00:00:00 Only Unassigned, MARYCRUZ [id number] ity of [place] [facility] [id number] Ananth as [id number] [facility] 009 Branch 2020-02-28 2020-02-28 [facility] [id number] Univers 08:27:00 11:04:00 Encounter Andrew Valero [id number] ity of [place] [id number] [place] [id number] [facility] 071 Branch 2020-02-27 2020-02-27 Outpatient [facility] [id number] Univers 10:45:00 10:45:00 ANDREW [id number] ity of [facility] 2020-02-27 2020-02-27 Outpatient [facility] [id number] Univers 10:45:00 10:45:00 ANDREW wray [facility] 2020-02-27 2020-02-27 Laboratory Only, Adc Test [facility] 1.2.840. 114 [id number] Univers 09:09:04 09:24:04 Only Andrew Perez 350.1.1 3.10 ity of [place] 4.2.7.2.686 [place] [id number] [address] 2020-02-21 2020-02-21 Clinical Trial Associate Nicci, Adc Lab Main [facility] 1.2.8 40.114 [id number] Univers 15:32:52 15:47:52 Visit Andrew Perez 350.1.1 3.10 ity of [place] 4.2.7.2.686 [place] [facility] [id number] [facility] [address] 2020-02-21 2020-02-21 Outpatient R LINDA [facility] [id number] Univers 15:45:00 15:45:00 ANDREW wray [facility] 2020-02-21 2020-02-21 Orders Doctor LISY [id number] [place] [address] 00:00:00 00:00:00 Only Unassigned, MARYCRUZ [id number] ity of [place] [facility] [id number] Ananth as [id number] [address] 2019-10-09 2019-10-09 Outpatient Renea Meiert [id number] 16:00:00 16:00:00 [facility] Medicine Outpat[facility] Clinics 2019-10-08 2019-10-08 [facility] [id number] 14:31:00 14:31:00 [facility] l Medicine Outpati ent Clinics 2019-04-19 2019-04-19 [facility] [id number] 13:34:00 13:34:00 [facility] l Medicine Outpati ent Clinics 2019-04-13 2019-04-13 [facility] [id number] 10:00:00 10:00:00 [facility] 2018-12-11 2018-12-11 Outpatient [facility] [id number] 09:00:00 09:00:00 [facility] 2018-02-13 2018-02-13 Outpatient [facility] [id number] 09:00:00 09:00:00 [facility] 2017-12-14 2017-12-14 Outpatient [facility] [id number] 16:13:00 16:13:00 [facility] 2017-12-14 2017-12-14 Outpatient [facility] [id number] 13:45:00 13:45:00 [facility] 2017-12-14 2017-12-14 Outpatient [facility] [id number] 08:06:00 08:06:00 [facility] Results Test Description Test Time Test Comments Results Result Comments Source COVID-19 (ID NOW RAPID TESTING) 2020-02-27 15:23:00 Test Item Value Reference Range Interpretation Comme nts SARS-CoV-2 Rapid ID NOW (test code Not Detected Not Detected = 98758-6) KARON (test code = KARON) ID NOW COVID-19 Assay is an isothermal nucleic acid amplification test intended for the qualitative detection of nucleic acid from SARS-CoV-2 viral RNA in nasopharyngeal (ROOFING SUPERVISOR) specimens. It is used under Emergency Use Authorization (EUA) by FDA. The limit of detection (LOD) of the assay is 125 Genome Equivalents/mL. A positive result is indicative of the presence of SARS-CoV-2 RNA. ?Clinical correlation with patient history and other diagnostic information is necessary to determine patient infection status. A negative (Not Detected) result does not preclude SARS-CoV-2 infection. In patients with clinical symptoms and other tests that are consistent with SARS-CoV-2 infection, negative results should be treated as presumptive negative and a new specimen should be tested with alternative PCR molecular test. Invalid: Please collect a new specimen for repeat patient testing if clinically indicated. Lab Interpretation (test code = Normal 47755-5) [facility]
--- NOTE | 2021-07-28 13:53 | RAD REPORT ---
EXAM DESCRIPTION: RAD - Chest Single View - 07/28/2021 1:28 pm CLINICAL HISTORY: COUGH Chest pain. COMPARISON: CHEST SINGLE VIEW dated 02/28/2015 FINDINGS: Portable technique limits examination quality. The lungs are mildly emphysematous but grossly clear. The heart is normal in size. No displaced fract ures. IMPRESSION: No acute intrathoracic process suspected.
--- NOTE | 2021-07-28 14:00 | ER ---
Nurse's Notes [facility] Name: Abdi Whitney II Age: 71 yrs Sex: Male : 1950 Arrival Date: 07/28/2021 Time: 11:37 Bed 6 Private MD: Tammie Malcolm Diagnosis: Cough;Nasal congestion;Acute upper respiratory infection, unspecified Presentation: 07/28 11:50 Chief complaint: Patient states: FEVER, COUGH, CONGESTION SINCE TUESDAY. SEEN AT URGENT bp CARE, NO RELIEF WITH PRESCRIBED MEDS. 11:50 Method Of Arrival: Ambulatory bp 11:53 Coronavirus screen: congestion, cough unrelated to allergies, fever. Ebola Screen: No bp symptoms or risks identified at this time. Initial Sepsis Screen: Does the patient meet any 2 criteria? No. Patient's initial sepsis screen is negative. Does the patient have a suspected source of infection? No. Patient's initial sepsis screen is negative. Risk Assessment: Do you want to hurt yourself or someone else? Patient reports no desire to harm self or others. Onset of symptoms is unknown. 11:53 Acuity: CHIN 4 bp Historical: - Allergies: 11:54 No Known Allergies; bp - Home Meds: 11:54 Zoloft 50 mg Oral tab 1 tab once daily [Active]; Vascepa 1 gram Oral cap 2 caps 2 times bp per day [Active]; diltiazem HCl 240 mg Oral cpER 1 cap once daily [Active]; - PMHx: 11:54 Anxiety; Depression; Hypertension; bp - Immunization history:: Adult Immunizations up to date. - Social history:: Smoking status: Patient denies any tobacco usage or history of. Screenin:34 Abuse screen: Denies threats or abuse. Denies injuries from another. Nutritional ww screening: No deficits noted. Tuberculosis screening: No symptoms or risk factors identified. Fall Risk None identified. Assessment: 13:34 General: Appears in no apparent distress. Behavior is cooperative. Pain: Denies pain. ww Neuro: Level of Consciousness is awake, alert, obeys commands, Oriented to person, place, time, situation, Moves all extremities. Speech is normal. Cardiovascular: Patient's skin is warm and dry. Chest pain is denied. Respiratory: Airway is patent Respiratory effort is even, unlabored, Respiratory pattern is regular, symmetrical. GI: No signs and/or symptoms were reported involving the gastrointestinal system. : No signs and/or symptoms were reported regarding the genitourinary system. EENT: Reports nasal congestion nasal discharge. Derm: Skin is healthy with good turgor. Vital Signs: 11:50 BP 124 / 86; Pulse 75; Resp 19; Temp 97.7; Pulse Ox 95% ; Weight 102.06 kg; Height 6 bp ft. 0 in. (182.88 cm); 14:31 BP 125 / 93; Pulse 66; Resp 15; Pulse Ox 95% ; Pain 0/10; jl7 11:50 Body Mass Index 30.52 (102.06 kg, 182.88 cm) bp ED Course: 11:37 Patient arrived in ED. am2 11:37 Tammie Malcolm FNP-C is Private Physician. am2 11:51 Noble Felipe DO is Attending Physician. ms3 11:54 Triage completed. bp 11:54 Arm band placed on. bp 13:30 CXR XRAY In Process Unspecified. EDMS 13:34 Heaven Badillo, RN is Primary Nurse. ww 13:35 Patient has correct armband on for positive identification. Bed in low position. Call ww light in reach. Side rails up X 1. 13:58 Xavier Awad MD is Referral Physician. ms3 14:32 No provider procedures requiring assistance completed. Patient did not have IV access jl7 during this emergency room visit. Administered Medications: No medications were administered Outcome: 13:59 Discharge ordered by . ms3 14:32 Discharged to home ambulatory. jl7 14:32 Condition: stable 14:32 Discharge instructions given to patient, Instructed on discharge instructions, follow up and referral plans. Demonstrated understanding of instructions, follow-up care. 14:33 Patient left the ED. jl7 Signatures: Dispatcher [employer] EDMS Reno Porter RN RN jl7 April Torres am2 Sameer Bethea RN OTONIEL bp Noble Felipe DO DO ms3 Heaven Badillo RN RN ww
--- NOTE | 2021-07-28 14:00 | EDPHYS ---
Physician Documentation [facility] Name: Abdi Whitney II Age: 71 yrs Sex: Male : 1950 Arrival Date: 07/28/2021 Time: 11:37 Bed 6 Private MD: Tammie Malcolm ED Physician Noble Felipe HPI: 07/28 12:07 This 71 yrs old Male presents to ER via Ambulatory with complaints of Fever, Cough. ms3 12:07 The patient reports fever, that was measured at 100.3 degrees Fahrenheit. Onset: The ms3 symptoms/episode began/occurred acutely, 1 week(s) ago. Modifying factors: Recent medications: Other Antibiotic, Cough medication, Steroid. Associated signs and symptoms: Pertinent positives: None. Severity of symptoms: At their worst the symptoms were moderate in the emergency department the symptoms are unchanged. 71-year-old male with past medical history of anxiety, depression, hypertension presents for nasal congestion, cough, fever that began 1 week prior to arrival. Patient states his discomfort is an 8/10 and described as throbbing. Patient states he was seen in urgent care and given antibiotics, steroids, cough medication. Despite taking these medications patient states his symptoms have not improved. Patient notes temperature of 100.3 at home, denies nausea, vomiting, abdominal pain, shortness of breath. Historical: - Allergies: 11:54 No Known Allergies; bp - Home Meds: 11:54 Zoloft 50 mg Oral tab 1 tab once daily [Active]; Vascepa 1 gram Oral cap 2 caps 2 times bp per day [Active]; diltiazem HCl 240 mg Oral cpER 1 cap once daily [Active]; - PMHx: 11:54 Anxiety; Depression; Hypertension; bp - Immunization history:: Adult Immunizations up to date. - Social history:: Smoking status: Patient denies any tobacco usage or history of. ROS: 12:07 Eyes: Negative for injury, pain, redness, and discharge, Cardiovascular: Negative for ms3 chest pain, and palpitations. Respiratory: Negative for shortness of breath, cough, wheezing, and pleuritic chest pain, Abdomen/GI: Negative for abdominal pain, nausea, vomiting, diarrhea, and constipation, MS/Extremity: Negative for injury and deformity, Skin: Negative for injury, rash, and discoloration, Neuro: Negative for headache, weakness, numbness, tingling. 12:07 ENT: Positive for nasal discharge, rhinorrhea, sinus congestion. 12:07 Respiratory: Positive for cough. 12:07 All other systems are negative. Exam: 12:07 Constitutional: This is a well developed, well nourished patient who is awake, alert, ms3 and in no acute distress. Head/Face: Normocephalic, atraumatic. Neck: Trachea midline, no cervical lymphadenopathy. Supple, full range of motion without nuchal rigidity, or vertebral point tenderness. No Meningismus. Chest/axilla: Normal chest wall appearance and motion. Nontender with no deformity. Cardiovascular: Regular rate and rhythm with a normal S1 and S2. No gallops, murmurs, or rubs. Normal PMI, no JVD. No pulse deficits. Abdomen/GI: Soft, non-tender, with normal bowel sounds. No distension or tympany. No guarding or rebound. No evidence of tenderness throughout. Back: No spinal tenderness. No costovertebral tenderness. Full range of motion. Skin: Warm, dry with normal turgor. Normal color with no rashes, no lesions, and no evidence of cellulitis. Psych: Awake, alert, with orientation to person, place and time. Behavior, mood, and affect are within normal limits. 12:07 Respiratory: the patient does not display signs of respiratory distress, Respirations: normal, Breath sounds: rales, that are mild, are located in both bases. Vital Signs: 11:50 BP 124 / 86; Pulse 75; Resp 19; Temp 97.7; Pulse Ox 95% ; Weight 102.06 kg; Height 6 bp ft. 0 in. (182.88 cm); 14:31 BP 125 / 93; Pulse 66; Resp 15; Pulse Ox 95% ; Pain 0/10; jl7 11:50 Body Mass Index 30.52 (102.06 kg, 182.88 cm) bp MDM: 12:07 Differential diagnosis: viral Infection, URI, bronchitis, pneumonia. ms3 13:00 Patient medically screened. ms3 13:59 Data reviewed: vital signs, nurses notes, radiologic studies. Counseling: I had a ms3 detailed discussion with the patient and/or guardian regarding: the historical points, exam findings, and any diagnostic results supporting the discharge/admit diagnosis, radiology results, the need for outpatient follow up, to return to the emergency department if symptoms worsen or persist or if there are any questions or concerns that arise at home. ED course: Discussed cxr results with patient. Patient to follow up with his pmd as discussed. Return precautions discussed to include worsening symptoms, or any other concerns. On re-evaluation patient is a/o x4, nad, non-toxic, ambulatory in ED, speaking full sentences.. 07/28 12:07 Order name: CXR XRAY; Complete Time: 13:56 ms3 Administered Medications: No medications were administered Disposition Summary: 07/28/21 13:59 Discharge Ordered Location: Home ms3 Condition: Stable ms3 Diagnosis - Cough ms3 - Nasal congestion ms3 - Acute upper respiratory infection, unspecified ms3 Followup: ms3 - With: Xavier Awad MD - When: 1 - 2 days - Reason: Re-evaluation by your physician Discharge Instructions: - Discharge Summary Sheet ms3 - Upper Respiratory Infection, Adult ms3 Forms: - Medication Reconciliation Form ms3 - Thank You Letter ms3 - Antibiotic Education ms3 - Prescription Opioid Use ms3 Signatures: Dispatcher [employer] Sameer Urbina, RN RN Noble Thomas DO DO ms3
[2021-07-28 14:54] VITALS: TEMP 97.7; O2SAT 95
[2021-07-28 14:55] VITALS: BP 125/93
== END 2021-07-28 14:33 | disposition home or self-care (01) ==
LOC: ER 11:13
DX: J06.9 Acute upper respiratory infection, unspecified (principal); R09.81 Nasal congestion; F41.8 Other specified anxiety disorders; I10 Essential (primary) hypertension
CPT/HCPCS: 71045; 99283